=== PATIENT | female | born 1995 | race Caucasian/White ===

== ENCOUNTER 2018-08-28 14:54 | Outpatient (CLI) | payer BC, MEDICAID ==
[~2018-08-28] VITALS: Ht 157.5 cm; Wt 72.7 kg
[2018-08-28 15:05] VITALS: BP 128/81; PULSE 67; TEMP 98
[2018-08-28] MEDS ORDERED: CONCEPT DHA1 CAP PO (15:11)
== END 2018-08-28 16:05 | disposition home or self-care (01) ==
LOC: LDRO 14:54
DX: O76 Abnormality in fetal heart rate and rhythm complicating labor and delivery (principal); Z3A.40 40 weeks gestation of pregnancy

== ENCOUNTER 2018-08-31 16:11 | Inpatient (IN) | payer BC, MEDICAID ==
[~2018-08-31] VITALS: Ht 157.5 cm; Wt 72.7 kg
[2018-08-31] VITALS (11 sets, daily range): BP systolic 110–142; BP diastolic 65–87; PULSE 65–82; TEMP 98.1–99
[~2018-08-31 16:11] MED LIST: CONCEPT DHA1 CAP PO
[2018-08-31 17:04] LABS: BASO % 0.1 % (0.0-2.0); EOS % 0.1 % (0-4.0); GRAN # 11.8 (1.4-6.5); GRAN % 79.8 % (42.2-75.2); HEMATOCRIT 38.4 % (37.0-47.0); HEMOGLOBIN 13.4 g/dl (12.5-16.0); LYMPH % 13.1 % (20.0-51.0); MEAN CELL VOLUME 85 fl (80.0-100.0); MEAN CORPUSCULAR HEMOGLOBIN 30 pg (27.0-31.0); MEAN CORPUSCULAR HGB CONC 35 g/dl (33.0-37.0); MEAN PLATELET VOLUME 10.5 fl (7.4-10.4); MONO % 6.6 % (1.7-9.3); PLATELET COUNT 255 K/mm3 (130-400); RED BLOOD COUNT 4.54 M/mm3 (4.10-5.30); REDCELL DISTRIBUTION WIDTH-CV 12.6 % (11.5-14.5)
[2018-09-01] VITALS: BP 99/56; PULSE 81
[2018-09-01 03:41] VITALS: BP 110/46; PULSE 55; TEMP 97.6
[2018-09-01 08:15] VITALS: BP 109/58; PULSE 66; TEMP 98
[2018-09-01 11:30] VITALS: BP 107/59; PULSE 66; TEMP 97.5
[2018-09-01 16:15] VITALS: BP 108/51; PULSE 77; TEMP 98.7
[2018-09-01 21:25] VITALS: BP 110/61; PULSE 72; TEMP 98
[2018-09-02 06:30] VITALS: BP 102/53; PULSE 65; TEMP 98.4
[2018-09-02] MEDS ORDERED: IBU600 MG PO (10:13)
== END 2018-09-02 14:15 | disposition home or self-care (01) | DRG 807 ==
LOC: LDRO 16:11 → LDR 16:30 → OB 09-01 01:48
PROVIDERS: Obstetrics & Gynecology
PROC: 10D07Z6 Extraction of Products of Conception, Vacuum, Via Natural or Artificial Opening (ICD-10-PCS; principal; 2018-08-31)
PROC: 0W8NXZZ Division of Female Perineum, External Approach (ICD-10-PCS; 2018-08-31)
DX: O76 Abnormality in fetal heart rate and rhythm complicating labor and delivery (principal); Z37.0 Single live birth; Z3A.40 40 weeks gestation of pregnancy
CPT/HCPCS: J2590; J2795; J7120